=== PATIENT | female | born 1960 | race Caucasian/White ===

== ENCOUNTER 2024-07-24 10:28 | Outpatient (AMB) | payer MEDICAID, SELFPAY ==
--- NOTE | 2024-07-24 11:11 | PD.ORTHCLVIS ---
Vital signs 07/24/24 11:12 Height 1.55 m Height Method Stated Weight 96.729 kg Weight Measurement Method Standing Scale BMI 40.3 BP 122/83 Blood Pressure Source Automatic Cuff Blood Pressure Location Left Upper Arm Position Sitting Respiration 18 Pulse 68 Pulse Source Monitor Temp 97.4 F Temp Source Temporal Artery Scan Pulse Oximetry (%) 98 Oxygen Delivery Method Room Air Med/Allergies Allergies & Medications Allergies No Known Allergies Allergy (Verified 07/24/24 11:13) Medication Reconciliation ibuprofen 600 mg tablet 600 mg PO QID PRN Pain 04/19/19 [History Confirmed 07/24/24] levofloxacin 500 mg tablet (Levaquin) 500 mg PO QDAY #9 tabs 04/19/19 [Rx Confirmed 07/24/24] metronidazole 500 mg tablet (Flagyl) 500 mg PO TID #29 tabs 04/19/19 [Rx Confirmed 07/24/24] omeprazole 40 mg capsule,delayed release 40 mg PO QDAY 04/19/19 [History Confirmed 07/24/24] meloxicam 7.5 mg tablet 7.5 mg PO QDAY #45 tabs 07/24/24 [Rx] meloxicam 7.5 mg tablet 7.5 mg PO QDAY #60 tabs 07/24/24 [Rx] Exam Exam Patient is in no acute distress and is cooperative with the examination today. Breathing is nonlabored. In no respiratory distress. Bilateral extremities were evaluated and demonstrates sensation intact to light touch. Palpable pedal pulses are present. No significant edema is present. Bilateral hips were examined. The patient has no pain with log roll of the hips. Internal rotation to 30 degrees and external rotation to 30 degrees is painless. Negative FADIR. The left knee was examined. The left knee is in varus alignment. Range of motion from 0-115 degrees. Knee is stable to varus and valgus as well as AP translation with <5mm. Patient has a negative McMurrays. There is no pain with patellofemoral compression and no crepitus noted. The knee is tender to palpation medially. The right knee was also examined. The right knee is in varus alignment. Range of motion from 0-120 degrees. Knee is stable to varus and valgus as well as AP translation with <5mm. Patient has a negative McMurrays. There is no pain with patellofemoral compression and no crepitus noted. The knee is tender to palpation medially We have no xrays to view but the report Says that there is severe degenerative changes of both knees Assessment and Plan Problem List (1) Degenerative arthritis of knee, bilateral: Status: Acute Plan: Patient is a 64-year-old female with bilateral knee pain and bilateral knee arthritis of significant severity. We discussed nonoperative treatment options as well as operative treatment options. I would like to see weightbearing x-rays. We will likely do repeat injections at the next visit. 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 ([id number]) MA Intake Visit Data Collection New Patient or Established: New Patient (never been to [facility]) Reason for Visit:: RIGHT KNEE PAIN Seen by Clinical Staff ONLY (RN/MA): No Field Service Specialist Required: Yes PCP or OBGYN visit in last 3 months: Yes Hx Now: No Do You Feel Safe at Home: Yes Authorities Contacted: N/A Questionairres Past Medical History Past Medical History Have you ever been diagnosed with any of the following: Neurological Problems Seizures: No Cardiology Problems Congestive Heart Failure: No Respiratory Problems Chronic Obstructive Pulmonary Disease (COPD): No Asthma: No Smoking: No Smoking Exposure: No Genital/Urinary Problems Renal Disease: No Endocrine Problems Diabetes Mellitus Type 1: No Diabetes Mellitus Type 2: No Blood Problems Sickle Cell Disease: No Subjective Visit Visit for: new patient and knee (RIGHT) Immunization / Flu Flu Vaccine in the Last 12 Months: Yes Flu Vaccine Exclusion Criteria: Already Received History of Present Illness Chief complaint: bilateral knee pain R>L Patient is a 64 yo female with right greater than left knee pain that has been ongoing for several year. She has had several injections that work for about 3 months. She has tried ibuprofen. 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
[2024-07-24 11:12] VITALS: BP 122/83; PULSE 68; RESP 18; TEMP 36.3; O2SAT 98; BMI 40.3
--- NOTE | 2024-07-24 11:20 | XR_ITS ---
Examination: Bilateral knees 2 views Right lateral, left lateral knees standing Bilateral axial knees single view TECHNIQUE: Bilateral AP knees standing single view, bilateral PA knees standing single view flexion Standing right lateral knee left lateral knee 2 views Bilateral axial knees single view total 5 views Exam date and time: 17/11/2019 at 1150 hours INDICATIONS: Bilateral knee pain beginning 3 years ago. FINDINGS: Severe osteopenia Severe narrowing [id number] medial joint space right knee Moderate to advanced osteoarthritis patellofemoral joint Mild narrowing medial joint space left knee Mild osteoarthritis patellofemoral joint IMPRESSION: Severe osteopenia Severe narrowing, [id number], medial joint space right knee
== END 2024-07-24 11:34 | disposition home or self-care (01) ==
PROVIDERS: PCP Family Medicine; Referring Provider Family Medicine; Supervising Provider Orthopaedic Surgery Adult Reconstructive Orthopaedic Surgery; Visit Provider Orthopaedic Surgery Adult Reconstructive Orthopaedic Surgery
DX: M17.0 Bilateral primary osteoarthritis of knee (principal); M25.562 Pain in left knee; M25.561 Pain in right knee; M85.862 Other specified disorders of bone density and structure, left lower leg; M85.861 Other specified disorders of bone density and structure, right lower leg
CPT/HCPCS: 73564; 99204; G0463

== ENCOUNTER 2024-08-19 09:03 | Outpatient (AMB) | payer MEDICAID, SELFPAY ==
[2024-08-19 09:23] VITALS: BP 128/78; PULSE 71; RESP 18; TEMP 36.8; O2SAT 97; BMI 41.0
--- NOTE | 2024-08-19 09:23 | ORTHONT_ITS ---
Vital signs 08/19/24 09:23 Height 1.55 m Height Method Stated Weight 98.571 kg Weight Measurement Method Standing Scale BMI 41.0 BP 128/78 Blood Pressure Source Automatic Cuff Blood Pressure Location Right Upper Arm Position Sitting Respiration 18 Pulse 71 Pulse Source Monitor Temp 98.2 F Temp Source Temporal Artery Scan Pulse Oximetry (%) 97 Oxygen Delivery Method Room Air Med/Allergies Allergies & Medications Allergies No Known Allergies Allergy (Verified 08/19/24 09:24) Medication Reconciliation ibuprofen 600 mg tablet 600 mg PO QID PRN Pain 04/19/19 [History Confirmed 08/19/24] levofloxacin 500 mg tablet (Levaquin) 500 mg PO QDAY #9 tabs 04/19/19 [Rx Confirmed 08/19/24] metronidazole 500 mg tablet (Flagyl) 500 mg PO TID #29 tabs 04/19/19 [Rx Confirmed 08/19/24] omeprazole 40 mg capsule,delayed release 40 mg PO QDAY 04/19/19 [History Confirmed 08/19/24] meloxicam 7.5 mg tablet 7.5 mg PO QDAY #45 tabs 07/24/24 [Rx Confirmed 08/19/24] meloxicam 7.5 mg tablet 7.5 mg PO QDAY #60 tabs 07/24/24 [Rx Confirmed 08/19/24] Exam Exam Patient is in no acute distress and is cooperative with the examination today. Breathing is nonlabored. In no respiratory distress. Bilateral extremities were evaluated and demonstrates sensation intact to light touch. Palpable pedal pulses are present. No significant edema is present. Bilateral hips were examined. The patient has no pain with log roll of the hips. Internal rotation to 30 degrees and external rotation to 30 degrees is painless. Negative FADIR. The left knee was examined. The left knee is in varus alignment. Range of motion from 0-115 degrees. Knee is stable to varus and valgus as well as AP translation with <5mm. Patient has a negative McMurrays. There is no pain with patellofemoral compression and no crepitus noted. The knee is tender to palpation medially. The right knee was also examined. The right knee is in varus alignment. Range of motion from 0-120 degrees. Knee is stable to varus and valgus as well as AP translation with <5mm. Patient has a negative McMurrays. There is no pain with patellofemoral compression and no crepitus noted. The knee is tender to palpation medially Xrays demonstrate Complete joint space obliteration of the right knee and moderate arthritis of the left Assessment and Plan Problem List (1) Degenerative arthritis of knee, bilateral: Status: Acute Plan: Patient is a 64-year-old female with bilateral knee pain and bilateral knee arthritis of significant severity. We discussed nonoperative treatment options as well as operative treatment options. Recommend knee cortisone injection as patient would like to proceed with conservative treatment at this time. The risks and benefits of the procedure were reviewed with the patient and patient gave verbal consent to continue with the procedure. Procedure: performed by Dr. Lee Using sterile technique the Right knee was thoroughly prepped with alcohol, and approximately 1 cc of Kenalog 40 mg/mL and 4 cc of 1% lidocaine was injected without resistance into the medial tibial femoral joint space. The patient tolerated the procedure. Office Procedures GNS Level of Care Nursing/Assessment Patient Status: Established Patient Nursing Assessment/Reassesment: Medication Reconciliation, Update PMH in EMR and Vital Signs Coordination of Care: Complex Care and Chronic Disease 1-5, Education Complex Pt/Fam, Consent,records obtained, informed consent, Results/Orders obtained and Staff clarify orders Special Needs: Language special needs Established Patient Charge Established Patient Point Assignment: 95 Established Patient Point Charge: EP Level 3 (80-115) Surgical Proc/IM SQ injection Major Surgical Procedure: Yes (KNEE INJECTION) Medication Given Medication Given Medication Given: Yes Documented Dose Given: 4 Route: Infiitration Medication Given Medication Given Medication Given: Yes Documented Dose Given: 1 Route: Infiitration Office Meds Xylocaine 10 mg/mL (1 %) injection solution Performing Provider: Fabrice Lee MD Performing Location: [facility] Administered by: Fabrice Lee MD on 08/19/24 10:08 Dose Route Admin Location Dispensed Lot Number Expiration Date [facility] Mr Teacher 20 mL Infiltration 20 mL [id number] 10/28/27 60220-685-80 [facility] triamcinolone acetonide 40 mg/mL suspension for injection Performing Provider: Fabrice Lee MD Performing Location: [facility] Administered by: Fabrice Lee MD on 08/19/24 10:08 Dose Route Admin Location Dispensed Lot Number Expiration Date 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 Intake Visit Data Collection New Patient or Established: Established Patient (seen at [facility] within 3 years) Reason for Visit:: f/u xrays Seen by Clinical Staff ONLY (RN/MA): No Verbal consent obtained for Telemed visit?: No Product Safety Coordinator Required: Yes PCP or OBGYN visit in last 3 months: Yes Hx Now: No Do You Feel Safe at Home: Yes Authorities Contacted: N/A Questionairres Past Medical History Past Medical History Have you ever been diagnosed with any of the following: Neurological Problems Seizures: No Cardiology Problems Congestive Heart Failure: No Respiratory Problems Chronic Obstructive Pulmonary Disease (COPD): No Asthma: No Smoking: No Smoking Exposure: No Genital/Urinary Problems Renal Disease: No Endocrine Problems Diabetes Mellitus Type 1: No Diabetes Mellitus Type 2: No Blood Problems Sickle Cell Disease: No Subjective Visit Visit for: follow up visit and x-rays Immunization / Flu Flu Vaccine in the Last 12 Months: Yes Flu Vaccine Exclusion Criteria: Already Received History of Present Illness Chief complaint: FU KNEE XRAYS POSS INJS Patient is a 64 yo female with right greater than left knee pain that has been ongoing for several year. She has had several injections that work for about 3 months. She has tried ibuprofen. She has done well with meloxicam. She would like a right knee injection today Personal History Occupation: [employer] PMH: BMI BMI Counceling provided: Yes Pain Pain level (0-10): 6 Pain duration: COMES AND GOES Pain location: inside (medial), outside (lateral), anterior and posterior Pain quality: sharp, dull and aching Pain timing: increases with activity Associated signs & symptoms: numbness Ambulatory data Ambulatory device: none Treatments Number of previous injections: 3 Improvement with previous injections: No Improvement with PT: No Improvement with NSAIDS: yes Review of Systems Review of Systems: All systems negative unless otherwise noted in HPI.
== END 2024-08-19 09:45 | disposition home or self-care (01) ==
LOC: HODSRG 09:03
PROVIDERS: PCP Family Medicine; Referring Provider Family Medicine; Supervising Provider Orthopaedic Surgery Adult Reconstructive Orthopaedic Surgery; Visit Provider Orthopaedic Surgery Adult Reconstructive Orthopaedic Surgery
DX: M17.0 Bilateral primary osteoarthritis of knee (principal)
CPT/HCPCS: 20610; 99213; J3301; J3490; G0463

== ENCOUNTER 2024-11-21 14:56 | Outpatient (AMB) | payer MEDICAID, SELFPAY ==
[2024-11-21 15:27] VITALS: BP 123/84; PULSE 70; RESP 18; TEMP 36.6; O2SAT 96; BMI 40.6
--- NOTE | 2024-11-21 15:27 | ORTHONT_ITS ---
Vital signs 11/21/24 15:27 Height 1.55 m Height Method Measured Weight 97.636 kg Weight Measurement Method Standing Scale BMI 40.6 BP 123/84 Blood Pressure Source Automatic Cuff Blood Pressure Location Left Upper Arm Position Sitting Respiration 18 Pulse 70 Pulse Source Monitor Temp 97.8 F Temp Source Temporal Artery Scan Pulse Oximetry (%) 96 Oxygen Delivery Method Room Air Med/Allergies Allergies & Medications Allergies No Known Allergies Allergy (Verified 11/21/24 15:29) Medication Reconciliation ibuprofen 600 mg tablet 600 mg PO QID PRN Pain 04/19/19 [History Confirmed 11/21/24] levofloxacin 500 mg tablet (Levaquin) 500 mg PO QDAY #9 tabs 04/19/19 [Rx Confirmed 11/21/24] metronidazole 500 mg tablet (Flagyl) 500 mg PO TID #29 tabs 04/19/19 [Rx Confirmed 11/21/24] omeprazole 40 mg capsule,delayed release 40 mg PO QDAY 04/19/19 [History Confirmed 11/21/24] meloxicam 7.5 mg tablet 7.5 mg PO QDAY #45 tabs 07/24/24 [Rx Confirmed 11/21/24] meloxicam 7.5 mg tablet 7.5 mg PO QDAY #60 tabs 07/24/24 [Rx Confirmed 11/21/24] Exam Exam Patient is in no acute distress and is cooperative with the examination today. Breathing is nonlabored. In no respiratory distress. Bilateral extremities were evaluated and demonstrates sensation intact to light touch. Palpable pedal pulses are present. No significant edema is present. Bilateral hips were examined. The patient has no pain with log roll of the hips. Internal rotation to 30 degrees and external rotation to 30 degrees is painless. Negative FADIR. The left knee was examined. The left knee is in varus alignment. Range of motion from 0-115 degrees. Knee is stable to varus and valgus as well as AP translation with <5mm. Patient has a negative McMurrays. There is no pain with patellofemoral compression and no crepitus noted. The knee is tender to palpation medially. The right knee was also examined. The right knee is in varus alignment. Range of motion from 0-120 degrees. Knee is stable to varus and valgus as well as AP translation with <5mm. Patient has a negative McMurrays. There is no pain with patellofemoral compression and no crepitus noted. The knee is tender to palpation medially Xrays demonstrate Complete joint space obliteration of the right knee and moderate arthritis of the left Assessment and Plan Problem List (1) Degenerative arthritis of knee, bilateral: Status: Acute Plan: Patient is a 64-year-old female with bilateral knee pain and bilateral knee arthritis of significant severity. We discussed nonoperative treatment options as well as operative treatment options. Recommend knee cortisone injection as patient would like to proceed with conservative treatment at this time. The risks and benefits of the procedure were reviewed with the patient and patient gave verbal consent to continue with the procedure. Procedure: performed by Dr. Lee Using sterile technique the Right knee was thoroughly prepped with alcohol, and approximately 1 cc of Depo-Medrol 80mg/mL and 4 cc of 0.2% ropivacaine was injected without resistance into the medial tibial femoral joint space. The patient tolerated the procedure. Office Procedures GNS Level of Care Nursing/Assessment Patient Status: Established Patient Nursing Assessment/Reassesment: Medication Reconciliation, Update PMH in EMR and Vital Signs Coordination of Care: Complex Care and Chronic Disease 1-5, Education Complex Pt/Fam, Consent,records obtained, informed consent, Results/Orders obtained and Staff clarify orders Established Patient Charge Established Patient Point Assignment: 95 Established Patient Point Charge: EP Level 3 (80-115) Surgical Proc/IM SQ injection Major Surgical Procedure: Yes (knee injection) Medication Given Medication Given Medication Given: Yes Documented Dose Given: 1 Route: Infiitration Medication Given Medication Given Medication Given: Yes Documented Dose Given: 4 Route: Infiitration Office Meds methylprednisolone acetate 80 mg/mL suspension for injection Performing Provider: Fabrice Lee MD Performing Location: [facility] Administered by: Fabrice Lee MD on 11/21/24 15:33 Dose Route Admin Location Dispensed Lot Number Expiration Date [facility] Fur Repair Inspector 80 mg intra-articular KNEE 1 mL [id number] 03/29/26 [address]-7 [facility] ropivacaine (PF) 2 mg/mL (0.2 %) injection solution Performing Provider: Fabrice Lee MD Performing Location: [facility] Administered by: Fabrice Lee MD on 11/21/24 15:33 Dose Route Admin Location Dispensed Lot Number Expiration Date [facility] Fur Repair Inspector 20 mL Infiltration KNEE 20 mL [id number] 03/29/26 57145-639-69 ANGELA LINARES MA Intake Visit Data Collection New Patient or Established: Established Patient (seen at [facility] within 3 years) Reason for Visit:: f/u xrays Seen by Clinical Staff ONLY (RN/MA): No Verbal consent obtained for Telemed visit?: No Overlock Waistline Joiner Required: Yes PCP or OBGYN visit in last 3 months: Yes Hx Now: No Do You Feel Safe at Home: Yes Authorities Contacted: N/A Questionairres Past Medical History Past Medical History Have you ever been diagnosed with any of the following: Neurological Problems Seizures: No Cardiology Problems Congestive Heart Failure: No Respiratory Problems Chronic Obstructive Pulmonary Disease (COPD): No Asthma: No Smoking: No Smoking Exposure: No Genital/Urinary Problems Renal Disease: No Endocrine Problems Diabetes Mellitus Type 1: No Diabetes Mellitus Type 2: No Blood Problems Sickle Cell Disease: No Subjective Visit Visit for: follow up visit and x-rays Immunization / Flu Flu Vaccine in the Last 12 Months: Yes Flu Vaccine Exclusion Criteria: Already Received History of Present Illness Chief complaint: FU KNEE XRAYS POSS INJS Patient is a 64 yo female with right greater than left knee pain that has been ongoing for several year. She has had several injections that work for about 3 months. She has tried ibuprofen. She has done well with meloxicam. She would like a right knee injection today Personal History Occupation: [employer] PMH: BMI BMI Counceling provided: Yes Pain Pain level (0-10): 6 Pain duration: COMES AND GOES Pain location: inside (medial), outside (lateral), anterior and posterior Pain quality: sharp, dull and aching Pain timing: increases with activity Associated signs & symptoms: numbness Ambulatory data Ambulatory device: none Treatments Number of previous injections: 3 Improvement with previous injections: No Improvement with PT: No Improvement with NSAIDS: yes Review of Systems Review of Systems: All systems negative unless otherwise noted in HPI.
== END 2024-11-21 15:42 | disposition home or self-care (01) ==
LOC: HODSRG 14:56
PROVIDERS: PCP Family Medicine; Referring Provider Family Medicine; Supervising Provider Orthopaedic Surgery Adult Reconstructive Orthopaedic Surgery; Visit Provider Orthopaedic Surgery Adult Reconstructive Orthopaedic Surgery
DX: M17.0 Bilateral primary osteoarthritis of knee (principal); M25.562 Pain in left knee; M25.561 Pain in right knee
CPT/HCPCS: 20610; 99213; J1010; J2795; G0463

== ENCOUNTER 2024-12-16 00:12 | Emergency (ER) | payer MEDICAID, SELFPAY ==
[2024-12-16 00:13] VITALS: BP 120/86; PULSE 107; RESP 17; TEMP 36.9; O2SAT 95; BMI 39.0
--- NOTE | 2024-12-16 01:26 | PD.EDABDPN ---
ED Abdominal Pain RME/HPI General Chief Complaint: Abdominal Pain Stated complaint: ABD PAIN NAUSEA VOMITING Time seen by provider: 12/16/24 01:28 Arrival date/time: 12/16/24 00:12 RME / HPI RME / HPI narrative: See [facility] for HPI documentation. Related Data Home Medications ?Medication ?Instructions ?Recorded ?Confirmed ibuprofen 600 mg tablet 600 mg PO QID PRN Pain 04/19/19 11/21/24 omeprazole 40 mg capsule,delayed 40 mg PO QDAY 04/19/19 11/21/24 release Previous Rx's ?Medication ?Instructions ?Recorded levofloxacin 500 mg tablet 500 mg PO QDAY #9 tabs 04/19/19 (Levaquin) metronidazole 500 mg tablet 500 mg PO TID #29 tabs 04/19/19 (Flagyl) meloxicam 7.5 mg tablet 7.5 mg PO QDAY #45 tabs 07/24/24 meloxicam 7.5 mg tablet 7.5 mg PO QDAY #60 tabs 07/24/24 acetaminophen 300 mg-codeine 30 mg 2 tab PO Q8H PRN pain #20 tabs 12/16/24 tablet ciprofloxacin HCl 500 mg tablet 500 mg PO BID 5 days #10 tabs 12/16/24 (Cipro) metronidazole 500 mg tablet 500 mg PO BID 5 days #10 tabs 12/16/24 ondansetron 4 mg disintegrating 4 mg PO TID PRN nausea and 12/16/24 tablet vomiting 30 days #10 tabs Allergies Allergy/AdvReac Type Severity Reaction Status Date / Time No Known Allergies Allergy Verified 12/16/24 00:21 Review of Systems Review of Systems Systems Reviewed: All systems reviewed, normal except as documented Past Medical History Past Medical History NEUROLOGIC: Negative Seizures CARDIAC: Negative Cardiac Disorders or Congestive Heart Failure RESPIRATORY: Negative Chronic Obstructive Pulmonary Disease (COPD), Asthma, Smoking or Smoking Exposure GENITOURINARY: Negative Renal Disease ENDOCRINE: Negative Diabetes Mellitus Type 1 or Diabetes Mellitus Type 2 HEMATOLOGIC: Negative Sickle Cell Disease Social History SMOKING STATUS: Never smoker ED Exam Narrative Physical exam: See [facility] for physical exam documentation. Course Quality Measures none Orders Category Date Time Status Bedside COVID-19 Antigen Test NOW Care 12/16/24 01:28 Completed Bedside Influenza A&B Antigen Test NOW Care 12/16/24 01:[address] abdomen pelvis wo con Stat Exams 12/16/24 01:30 Taken Amylase Stat Lab 12/16/24 03:15 Completed Bilirubin,Direct Stat Lab 12/16/24 03:15 Completed CBC Stat Lab 12/16/24 03:15 Completed CMP [Comprehensive Metabolic Panel] Stat Lab 12/16/24 03:15 Completed Lipase Stat Lab 12/16/24 03:15 Completed Magnesium Stat Lab 12/16/24 03:15 Completed UA, C/S IF [Urinalysis, C/S if Indicated] Stat Lab 12/16/24 01:41 Completed ACETAMINOPHEN w/COD 300-30 [Tylenol w/Cod #3] Med 12/16/24 01:29 Discontinued 2 tab PO X1 ONE Ciprofloxacin HCl [Ciprofloxacin] Med 12/16/24 03:54 Discontinued 500 mg PO X1 ONE Ondansetron Odt [Zofran Odt] Med 12/16/24 01:29 Discontinued 4 mg PO X1 ONE metroNIDAZOLE [Flagyl] Med 12/16/24 03:54 Discontinued 500 mg PO X1 ONE Vital Signs Vital signs: Vital Signs Temperature 98.4 F 12/16/24 00:13 Pulse Rate 107 H 12/16/24 00:13 Respiratory Rate 17 12/16/24 00:13 Blood Pressure 120/86 H 12/16/24 00:13 Pulse Oximetry (%) 95 12/16/24 00:13 Oxygen Delivery Method Room Air 12/16/24 00:13 Abdominal Pain MDM MDM Narrative MDM Narrative:: This section includes all my notes and documentations, including HPI, PE, and ED course. Greg Peter MD HPI: 64yo female here with left-sided abdominal pain, nausea, and vomiting for the last couple hours. Patient has chills. No fever. PSH includes cholecystectomy and c-sections. No other complaints reported. ROS: All negative except as documented in HPI. Physical Exam: General: Alert and oriented. Appears uncomfortable. Eyes: Conjunctivae and lids clear. ENT: No nasal congestion. Neck: Supple. Heart: RRR. Lungs: No respiratory distress. Good air movement. No rhonchi, wheezing, rales. Abdomen: Soft with equivocal left-sided tenderness. Normal bowel sounds. No distension. No rebound or guarding. Back: No CVA tenderness. Skin: Warm and dry. Neuro: Alert and oriented X 3. I reviewed all diagnostic test results. My review of the CT abdomen pelvis report is mild sigmoiditis. Blood tests and urine tests are unremarkable except for WBC 12.0, Glucose 202. COVID/Influenza negative. At this point, diagnoses include sigmoiditis. Treatment here included Tylenol with Codeine, Ciprofloxacin, Metronidazole, Zofran. Significant improvement noted. Recommend outpatient management. Based on my best medical judgment, made decision no further evaluation or treatment indicated at this time. Patient understands and agrees to the discharge instructions customized and printed, see below. Discharge instructions from Dr. Peter: 1. After evaluation, your symptoms are due to colitis, infection/inflammation of your colon. 2. Take Cipro and Flagyl for the infection. 3. Zofran for nausea/vomiting. 4. Tylenol with codeine for severe pain. 5. Clear liquid diet for 24 hours then advance as tolerated. 6. To prevent dehydration, increase oral fluid and maintain clear urine. If dark or yellow, increase oral fluid. 7. See a private doctor on 12/25/2024 for recheck. Ask to review all test results and official radiology reports, to make sure you receive all necessary follow-ups and monitoring. To assess for serious intra-abdominal condition, ask for help with more investigation not available here in the ER. Such as EGD or scoping the stomach, colonoscopy or scoping the colon, and referral to see telephone diaphragm assembler. This is very important. 8. Seek immediate medical care with worsening, fever, or with any concerns. Greg Peter MD Patient data External records reviewed:: [facility] previous records (Per chart review, patient was seen here on 04/19/19 for diverticulitis.) Clinical information provided by:: patient Social determinants that could affect healthcare access:: none Patient has the following chronic illnesses:: none How is presenting disease/condition affected by chronic disease/condition?: no chronic disease Evaluation data The following diagnostics were reviewed and interpreted by me:: lab results and radiology exam(s) Lab and/or radiology exams considered but not ordered:: none Interpretation Summary: I reviewed all diagnostic test results. My review of the CT abdomen pelvis report is mild sigmoiditis. Blood tests and urine tests are unremarkable except for WBC 12.0, Glucose 202. COVID/Influenza negative. Medications / Prescriptions Medications or Prescriptions considered but not ordered:: none Medication administrations:: Medication Administration History Discontinued Medications Acetaminophen/Codeine Phosphate (Acetaminophen W/Cod 300-30 Tablet) 2 tab PO X1 ONE Stop: 12/16/24 01:30 Last Admin: 12/16/24 01:50 Dose: 2 tab Documented By: TA Ciprofloxacin (Ciprofloxacin Hcl 250 Mg Tablet) 500 mg PO X1 ONE Stop: 12/16/24 03:55 Last Admin: 12/16/24 04:38 Dose: 500 mg Documented By: DOROTEO Metronidazole (Metronidazole 250 Mg Tablet) 500 mg PO X1 ONE Stop: 12/16/24 03:55 Last Admin: 12/16/24 04:38 Dose: 500 mg Documented By: DOROTEO Ondansetron HCl (Ondansetron Odt 4 Mg Tabrap) 4 mg PO X1 ONE; Protocol Stop: 12/16/24 01:30 Last Admin: 12/16/24 01:50 Dose: 4 mg Documented By: TA Tylenol with Codeine, Ciprofloxacin, Metronidazole, Zofran Consultations Consultation(s) initiated? (list below): No Diagnosis Differential diagnosis abdominal pain: acute appendicitis, calculus of kidney, constipation, diverticulitis, endometriosis, gastroenteritis, pancreatitis, small bowel obstruction and other (Biliary colic, colitis) Most likely diagnosis given after review of the tests above:: Sigmoiditis Admission Indicated Admission indicated?: not indicated Explain why admission is indicated or not indicated:: With significant improvement and no condition needing emergent intervention, there was no indication for admission. Admission Request Was there a request for admission?: No Disposition Plan Disposition Plan: Discharge Discharge Attestation Discharge Attestation: The patient and all family members were given an opportunity to ask questions and understood the discharge instructions. Discharge instructions specifically effects, indications for sooner follow up or return to the emergency department, and the expected course of current diagnosis. Patient condition: Stable Discharge Plan Plan Patient Disposition: HOME (Self Care) Prescriptions/Referrals Prescriptions/Med Rec: New metronidazole 500 mg tablet 500 mg PO BID 5 Days Qty: 10 0RF acetaminophen-codeine 300-30 mg tablet 2 tab PO Q8H MDD 6 PRN (Reason: pain) Qty: 20 0RF ciprofloxacin HCl [Cipro] 500 mg tablet 500 mg PO BID 5 Days Qty: 10 0RF ondansetron 4 mg tablet,disintegrating 4 mg PO TID PRN (Reason: nausea and vomiting) 30 Days Qty: 10 0RF No Action meloxicam 7.5 mg tablet 7.5 mg PO QDAY Qty: 60 3RF meloxicam 7.5 mg tablet 7.5 mg PO QDAY Qty: 45 3RF omeprazole 40 mg Capsule,Delayed Release(Dr/Ec) 40 mg PO QDAY ibuprofen 600 mg Tablet 600 mg PO QID PRN (Reason: Pain) levofloxacin [Levaquin] 500 mg tablet 500 mg PO QDAY Qty: 9 0RF metronidazole [Flagyl] 500 mg tablet 500 mg PO TID Qty: 29 0RF Referrals: No Primary/Family,Physician [Primary Care Provider] - In 1 week Problem List Clinical Impression: Sigmoiditis Patient/Caregiver Discharge Instructions Discharge Activity: activity as tolerated Education Materials: ED Gastroenteritis, Bacterial (Adult) Additional Instructions: Discharge instructions from Dr. Peter: 1. After evaluation, your symptoms are due to colitis, infection/inflammation of your colon. 2. Take Cipro and Flagyl for the infection. 3. Zofran for nausea/vomiting. 4. Tylenol with codeine for severe pain. 5. Clear liquid diet for 24 hours then advance as tolerated. 6. To prevent dehydration, increase oral fluid and maintain clear urine.? If dark or yellow, increase oral fluid. 7. See a private doctor on 12/25/2024 for recheck. Ask to review all test results and official radiology reports, to make sure you receive all necessary follow-ups and monitoring. To assess for serious intra-abdominal condition, ask for help with more investigation not available here in the ER.? Such as EGD or scoping the stomach, colonoscopy or scoping the colon, and referral to see telephone diaphragm assembler. This is very important. 8. Seek immediate medical care with worsening, fever, or with any concerns. Instrucciones de raymond del Dr. Peter: 1. Tras la evaluaci?n, fili s?ntomas se deben a colitis, infecci?n/inflamaci?n del colon. 2. [place] Ciprofloxacino y Flagyl para la infecci?n. 3. Zofran para las n?useas/v?mitos. 4. Tylenol con code?na para el dolor intenso. 5. Dieta de l?quidos leticia debo 24 horas y luego aumente la dosis seg?n la tolerancia. 6. Para prevenir la deshidrataci?n, aumente la ingesta de l?quidos y mantenga la orina edwige. Si la orina es oscura o amarilla, aumente la ingesta de l?quidos. 7. Consulte con un m?dico particular el 25/12/2024 para arjun nueva revisi?n. Solicite la revisi?n de todos los resultados de las pruebas y los informes radiol?gicos oficiales para asegurarse de recibir todos los controles y monitoreo necesarios. Para evaluar arjun afecci?n intraabdominal grave, solicite ayuda con otras pruebas que no est?n disponibles en urgencias, nila arjun endoscopia estomacal (EGD) o arjun endoscopia g?strica, arjun colonoscopia o arjun endoscopia de colon, y la derivaci?n a un gastroenter?logo. [place] es muy importante. 8. Busque atenci?n m?dica inmediata si presenta empeoramiento de la condici?n, fiebre o cualquier inquietud. Print Language: [place] Stand Alone Forms: [employer] Award Info., Patient Portal Info Letter
--- NOTE | 2024-12-16 01:30 | XR_ITS ---
Examination: CT abdomen and pelvis without contrast. Coronal 3-D reconstructions. Sagittal 2-D reconstructions. Date and time of exam:December 16, 2024, 0142 hours, comparison April 19, 2019. INDICATIONS: Lower abdominal pain with nausea vomiting today, history acute diverticulitis distal descending colon and sigmoid colon on CT abdomen and pelvis April 19, 2019. CTDI: vol (mGy): 16.2. DLP: (mGycm): 833. Technique: Axial images of the abdomen have been obtained, 3 mm slice thickness Intravenous contrast material has not been administered. Low dose protocols were performed. One or more of the following dose reduction techniques were used; automated exposure control, adjustment of the mA and/or KV according to patient size, use of iterative reconstruction technique. Findings: Liver is mildly irregular in contour with fatty infiltration. Spleen not enlarged. No pancreatic or adrenal mass. 25 mm probable cyst posterior margin right kidney. No renal or ureteral calculi, no hydronephrosis Normal appendix No bowel obstruction Colonic diverticulosis, I do not visualize definite diverticulitis No pelvic mass Contracted urinary bladder Fat-containing femoral hernias. Advanced degenerative disc disease L5-S1 IMPRESSION: Suspect primary hepatocellular disease Recommend renal sonography to confirm 25 mm posterior right renal cyst Normal appendix Colonic diverticulosis, I do not visualize definite diverticulitis, if this is a clinical concern, recommend follow-up CT abdomen and pelvis imaging postintravenous contrast
[2024-12-16 01:49] LABS: Collection Type, Urine Clean Catch
[2024-12-16] MEDS: ONDANSETRON ODT 4 MG TABRAP PO (01:50)
[2024-12-16] MEDS: ACETAMINOPHEN w/COD 300-30 TABLET 2 TAB PO (01:50)
[2024-12-16 02:13] LABS: Bacteria,Urine Rare; Bilirubin,Urine Negative (Negative); Blood,Urine Negative (Negative); Clarity,Urine Clear (Clear/Hazy); Color,Urine Yellow (Lt Yel-Yel); Culture Indicated,Urine Not Indicated; Glucose, Urine Negative (Negative); Ketones,Urine Negative (Negative); Leukocyte Esterase,Urine Negative (Negative); Nitrite,Urine Negative (Negative); PH,Urine 6.5 (5.0-7.0); Protein,Urine Trace (Neg - Trace); RBC,Urine 2 /hpf (0-3); Specific Gravity,Urine 1.029 (1.001-1.035); Squamous Epithelial Cell,Urine 1 /hpf (0-5); Urobilinogen,Urine Negative mg/dL (0.0-1.0); WBC,Urine 2 /hpf (0-5)
--- NOTE | 2024-12-16 02:27 | PRELIM_ITS ---
CT scan of the abdomen and pelvis without intravenous contrast (axial sections with sagittal and coronal reformats) December 16, 2024 0141 hours Clinical History: ABD PAIN Comparison: None. Findings: The lung bases are clear. The pancreas, spleen, and adrenals are unremarkable on this noncontrast study. Status postcholecystectomy. Hepatomegaly. Mild irregular liver margins. Right renal cystic lesion measuring 3.5 cm. No hydronephrosis. No evidence of bowel obstruction. The appendix is within normal limits. There is no mesenteric or retroperitoneal adenopathy. The urinary bladder is nondistended, limited evaluation. There is no free fluid or free air. Degenerative changes of the imaged portions of the spine. Chronic multilevel disc disease. No acute fractures. Vascular calcifications. Small hiatus hernia. Diverticulosis of the colon. Mild thickening of the proximal sigmoid colon without peripheral fat stranding. The uterus and ovaries are within normal limits. Impression: Possible mild sigmoiditis. Hepatomegaly and possible cirrhosis. Small hiatus hernia. Right renal cystic lesion, consider follow-up for characterization. Report Electronically Signed By: Darek Logan 12/16/2024 2:25:57 AM [EST]
[2024-12-16 03:48] LABS: Basophils # (Auto) 0.0 Thou/mm3 (0.0-0.2); Basophils % (Auto) 0 % (0-2.5); Eosinophils # (Auto) 0.1 Thou/mm3 (0.0-0.5); Eosinophils % (Auto) 1 % (0-10); Hematocrit 44.6 % (36.0-46.0); Hemoglobin 14.3 g/dL (12.0-16.0); Immature Granulocytes Auto 0.04 Thou/mm3 (0.00-0.00); Lymphocytes # (Auto) 0.5 Thou/mm3 (1.0-4.8); Lymphocytes % (Auto) 4 % (10-50); Mean Corpuscular HGB Conc 32.1 g/dl (31.0-37.0); Mean Corpuscular Hemoglobin 29.4 pg (25.0-35.0); Mean Corpuscular Volume 92 fL (80-100); Monocytes # (Auto) 0.6 Thou/mm3 (0.0-0.8); Monocytes % (Auto) 5 % (0-12); Neutrophils # (Auto) 10.7 Thou/mm3 (1.8-7.7); Neutrophils % (Auto) 90 % (37-80); Nucleated Red Blood Cell # 0.00 Thou/mm3 (0.00-0.00); Nucleated Red Blood Cell % 0 /100 WBC (0); Platelet Count 252 Thou/mm3 (140-440); RDW Standard Deviation 43.8 fL (36.4-46.3); Red Blood Count 4.86 Miln/mm3 (4.00-5.20); White Blood Count 12.0 Thou/mm3 (3.6-11.0)
[2024-12-16 04:09] LABS: Alanine Aminotransferase 15 U/L (10-49); Albumin, Serum 4.4 gm/dL (3.4-4.8); Albumin/Globulin Ratio 1.6 (1.2-2.2); Alkaline Phosphatase 82 U/L (46-116); Amylase 53 U/L (30-118); Anion Gap 11 (7-16); Aspartate Amino Transferase 17 U/L (0-34); BUN/Creatinine Ratio 25 Ratio (12-20); Bilirubin,Direct 0.3 mg/dL (0.0-0.3); Bilirubin,Total 1.2 mg/dL (0.3-1.2); Blood Urea Nitrogen 20 mg/dL (9-23); Calcium 9.2 mg/dL (8.3-10.6); Calcium (Corrected) 9.2 mg/dL (8.5-10.1); Carbon Dioxide 27.2 mMol/L (20.0-31.0); Chloride 104 mMol/L (98-107); Creatinine (Component) 0.8 mg/dL (0.6-1.3); Estimated Creatinine Clearance 73.2 mL/min (>60); Globulin 2.8 gm/dL (2.3-3.5); Glucose 202 mg/dL (74-106); Lipase 34 U/L (12-53); Magnesium 1.4 mg/dL (1.6-2.6); Osmolality,Calculated 291 (275-295); Potassium 4.4 mMol/L (3.4-5.1); Sodium 142 mMol/L (136-145); Total Protein 7.2 gm/dL (5.7-8.2); eGFR > 60 See Note
[2024-12-16] MEDS: CIPROFLOXACIN HCL 250 MG TABLET 500 MG PO (04:38)
== END 2024-12-16 04:49 | disposition home or self-care (01) ==
PROVIDERS: Emergency Provider Emergency Medicine
DX: K52.9 Noninfective gastroenteritis and colitis, unspecified (principal)
CPT/HCPCS: 36415; 74176; 80053; 81001; 82150; 82248; 83690; 83735; 85025; 87400; 87811; 99283; Q0162; A9270

== ENCOUNTER 2025-02-19 14:58 | Outpatient (AMB) | payer MEDICAID, SELFPAY ==
--- NOTE | 2025-02-19 15:12 | PD.ORTHCLVIS ---
Vital signs 02/19/25 15:40 Height 1.52 m Height Method Stated Weight 93.043 kg Weight Measurement Method Standing Scale BMI 40.2 BP 133/84 H Blood Pressure Source Automatic Cuff Blood Pressure Location Left Upper Arm Position Sitting Respiration 18 Pulse 72 Pulse Source Monitor Temp 97.8 F Temp Source Temporal Artery Scan Pulse Oximetry (%) 98 Oxygen Delivery Method Room Air Med/Allergies Allergies & Medications Allergies No Known Allergies Allergy (Verified 02/19/25 15:41) Medication Reconciliation ibuprofen 600 mg tablet 600 mg PO QID PRN Pain 04/19/19 [History Confirmed 02/19/25] levofloxacin 500 mg tablet (Levaquin) 500 mg PO QDAY #9 tabs 04/19/19 [Rx Confirmed 02/19/25] metronidazole 500 mg tablet (Flagyl) 500 mg PO TID #29 tabs 04/19/19 [Rx Confirmed 02/19/25] omeprazole 40 mg capsule,delayed release 40 mg PO QDAY 04/19/19 [History Confirmed 02/19/25] meloxicam 7.5 mg tablet 7.5 mg PO QDAY #45 tabs 07/24/24 [Rx Confirmed 02/19/25] meloxicam 7.5 mg tablet 7.5 mg PO QDAY #60 tabs 07/24/24 [Rx Confirmed 02/19/25] acetaminophen 300 mg-codeine 30 mg tablet 2 tab PO Q8H PRN pain #20 tabs 12/16/24 [Rx Confirmed 02/19/25] Exam Exam Patient is in no acute distress and is cooperative with the examination today. Breathing is nonlabored. In no respiratory distress. Bilateral extremities were evaluated and demonstrates sensation intact to light touch. Palpable pedal pulses are present. No significant edema is present. Bilateral hips were examined. The patient has no pain with log roll of the hips. Internal rotation to 30 degrees and external rotation to 30 degrees is painless. Negative FADIR. The left knee was examined. The left knee is in varus alignment. Range of motion from 0-115 degrees. Knee is stable to varus and valgus as well as AP translation with <5mm. Patient has a negative Mc[place]rays. There is no pain with patellofemoral compression and no crepitus noted. The knee is tender to palpation medially. The right knee was also examined. The right knee is in varus alignment. Range of motion from 0-120 degrees. Knee is stable to varus and valgus as well as AP translation with <5mm. Patient has a negative Mc[place]rays. There is no pain with patellofemoral compression and no crepitus noted. The knee is tender to palpation medially Xrays demonstrate Complete joint space obliteration of the right knee and moderate arthritis of the left Assessment and Plan Problem List (1) Degenerative arthritis of knee, bilateral: Status: Acute Plan: Patient is a 64-year-old female with bilateral knee pain and bilateral knee arthritis of significant severity. We discussed nonoperative treatment options as well as operative treatment options. She has done well with cortisone injections and would like another injection today Recommend knee cortisone injection as patient would like to proceed with conservative treatment at this time. The risks and benefits of the procedure were reviewed with the patient and patient gave verbal consent to continue with the procedure. Procedure: performed by Dr. Lee Using sterile technique the Right knee was thoroughly prepped with alcohol, and approximately 1 cc of Depo-Medrol 80mg/mL and 4 cc of 0.2% ropivacaine was injected without resistance into the medial tibial femoral joint space. The patient tolerated the procedure. Office Procedures GNS Level of Care Nursing/Assessment Patient Status: Established Patient Nursing Assessment/Reassesment: Medication Reconciliation, Update PMH in EMR and Vital Signs Coordination of Care: Complex Care and Chronic Disease 1-5, Education Complex Pt/Fam, Consent,records obtained, informed consent, Results/Orders obtained and Staff clarify orders Special Needs: Language special needs Established Patient Charge Established Patient Point Assignment: 95 Established Patient Point Charge: EP Level 3 (80-115) Surgical Proc/IM SQ injection Minor Surgical Procedure: Yes (KNEE INJECTION) Medication Given Medication Given Medication Given: Yes Documented Dose Given: 1 Route: Infiitration Medication Given Medication Given Medication Given: Yes Documented Dose Given: 4 Route: Infiitration Office Meds methylprednisolone acetate 80 mg/mL suspension for injection Performing Provider: Fabrice Lee MD Performing Location: [facility] Administered by: Fabrice Lee MD on 02/19/25 15:34 Dose Route Admin Location Dispensed Lot Number Expiration Date Package [facility] Launching Pad Mechanic 80 mg intra-articular 1 mL [id number] 10/27/26 [id number] [employer] ropivacaine (PF) 2 mg/mL (0.2 %) injection solution Performing Provider: Fabrice Lee MD Performing Location: [facility] Administered by: Fabrice Lee MD on 02/19/25 15:34 Dose Route Admin Location Dispensed Lot Number Expiration Date Package NDC NDC Launching Pad Mechanic 20 mL Infiltration 20 mL [id number] 05/29/27 [id number] [facility] Intake Visit Data Collection New Patient or Established: Established Patient (seen at [facility] within 3 years) Reason for Visit:: R KNEE PAIN Seen by Clinical Staff ONLY (RN/MA): No Mattress Weaver Required: Yes PCP or OBGYN visit in last 3 months: Yes Hx Now: No Do You Feel Safe at Home: Yes Authorities Contacted: N/A Questionairres Past Medical History Past Medical History Have you ever been diagnosed with any of the following: Neurological Problems Seizures: No Cardiology Problems Congestive Heart Failure: No Respiratory Problems Chronic Obstructive Pulmonary Disease (COPD): No Asthma: No Smoking: No Smoking Exposure: No Genital/Urinary Problems Renal Disease: No Endocrine Problems Diabetes Mellitus Type 1: No Diabetes Mellitus Type 2: No Blood Problems Sickle Cell Disease: No Subjective Visit Visit for: follow up visit and x-rays Immunization / Flu Flu Vaccine in the Last 12 Months: Yes Flu Vaccine Exclusion Criteria: Already Received History of Present Illness Chief complaint: FU KNEE XRAYS POSS INJS Patient is a 64 yo female with right greater than left knee pain that has been ongoing for several year. She has had several injections that work for about 3 months. She has tried ibuprofen. She has done well with meloxicam. She would like a right knee injection today Personal History Occupation: [employer] PMH: BMI BMI Counceling provided: Yes Pain Pain level (0-10): 6 Pain duration: COMES AND GOES Pain location: inside (medial), outside (lateral), anterior and posterior Pain quality: sharp, dull and aching Pain timing: increases with activity Associated signs & symptoms: numbness Ambulatory data Ambulatory device: none Treatments Number of previous injections: 3 Improvement with previous injections: No Improvement with PT: No Improvement with NSAIDS: yes Review of Systems Review of Systems: All systems negative unless otherwise noted in HPI.
[2025-02-19 15:40] VITALS: BP 133/84; PULSE 72; RESP 18; TEMP 36.6; O2SAT 98; BMI 40.2
== END 2025-02-19 15:17 | disposition home or self-care (01) ==
LOC: HODSRG 14:58
PROVIDERS: PCP Family Medicine; Referring Provider Family Medicine; Supervising Provider Orthopaedic Surgery Adult Reconstructive Orthopaedic Surgery; Visit Provider Orthopaedic Surgery Adult Reconstructive Orthopaedic Surgery
DX: M25.561 Pain in right knee (principal); M25.562 Pain in left knee; M17.0 Bilateral primary osteoarthritis of knee
CPT/HCPCS: 20610; 99213; J1010; J2795; G0463